=== PATIENT | female | born 2000 | race American Indian/Alaskan Native ===

== ENCOUNTER 2019-09-03 17:57 | Emergency (ER) | payer OTHER ==
[2019-09-03 18:38] VITALS: BP 98/64
[2019-09-03] MEDS ORDERED: IBUPROFEN 800 MG TAB PO ONE (21:55)
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
== END 2019-09-03 23:00 | disposition home or self-care (01) ==
LOC: ED 17:57
DX: S86.911A Strain of unspecified muscle(s) and tendon(s) at lower leg level, right leg, initial encounter (principal); X58.XXXA Exposure to other specified factors, initial encounter; Y93.89 Activity, other specified; Y92.89 Other specified places as the place of occurrence of the external cause; Y99.8 Other external cause status

== ENCOUNTER 2021-04-28 16:33 | Emergency (ER) | payer OTHER ==
[2021-04-28 18:45] VITALS: BP 141/93
--- NOTE | 2021-04-28 19:25 | Emergency Department Report ---
ED Palpitations HPI - General Chief Complaint: Arrhythmia/Palpitations Stated Complaint: HEART RACING,LOOSE BREATH DIZZINESS Time Seen by Provider: 04/28/21 19:18 Source: patient Mode of arrival: Ambulatory Limitations: No Limitations - History of Present Illness Initial Comments: Patient is a 20-year-old female presents emergency room complaints of episodes of palpitations for 1 month. She states that she has the episode potentially once a week. she states that she feels anxious and then will feel like she is breathing fast during the episode. She has no symptoms at all currently. She denies any chest pain, pleuritic pain, leg swelling, calf pain, fever, nausea, vomiting, diarrhea, hemoptysis, cough. She denies any recent travel, recent birch rgery, hormone use, recent immobilization. No past medical history. No allergies to medications. She states that she does drink a significant amount of caffeine daily and barely drinks any water. Denies any alcohol use, tobacco use, drug use. - Related Data Previous Rx's Medication Instructions Recorded Last Taken Type Ibuprofen [Motrin 400 MG tab] 400 mg PO Q8H PRN #30 tablet 09/03/19 Unknown Rx Allergies Allergy/AdvReac Type Severity Reaction Status Date / Time No Known Allergies Allergy Verified 09/03/19 18:00 ED Review of Systems ROS: Stated complaint: HEART RACING,LOOSE BREATH DIZZINESS Other details as noted in HPI Comment: All other systems reviewed and negative ED Past Medical Hx - Social History Smoking Status: Never Smoker Substance Use Type: None - Medications Home Medications: Home Medications Medication Instructions Recorded Confirmed Last Taken Type Ibuprofen [Motrin 400 MG tab] 400 mg PO Q8H PRN #30 tablet 09/03/19 Unknown Rx ED Physical Exam - General Limitations: No Limitations General appearance: alert, in no apparent distress - Head Head exam: Present: atraumatic, normocephalic - Eye Eye exam: Present: normal appearance - ENT ENT exam: Present: mucous membranes moist - Respiratory Respiratory exam: Present: normal lung sounds bilaterally. Absent: respiratory distress, wheezes, rales, rhonchi, stridor, chest wall tenderness, accessory muscle use, decreased breath sounds, prolonged expiratory - Cardiovascular Cardiovascular Exam: Present: regular rate, normal rhythm, normal heart sounds. Absent: systolic murmur, diastolic murmur, rubs, gallop - Neurological Exam Neurological exam: Present: alert, oriented X3 - Psychiatric Psychiatric exam: Present: normal affect, normal mood - Skin Skin exam: Present: warm, dry, intact ED Course Vital Signs 04/28/21 18:44 Temperature 97.9 F Pulse Rate 82 Respiratory 16 Rate Blood Pressure 141/93 O2 Sat by Pulse 100 Oximetry ED Medical Decision Making - Lab Data Result diagrams: 04/28/21 19:46 04/28/21 19:46 - EKG Data EKG shows normal: sinus rhythm, axis, intervals, ST-T waves Rate: normal - EKG Data 04/28/21 19:25 Sinus arrhythmia Low voltage no STEMI no old EKG for comparison - Medical Decision Making Patient is a 20-year-old female presents emergency room complaints of episodes of palpitations for 1 month. She states that she has the episode potentially once a week. she states that she feels anxious and then will feel like she is breathing fast during the episode. She has no symptoms at all currently. She denies any chest pain, pleuritic pain, leg swelling, calf pain, fever, nausea, vomiting, diarrhea, hemoptysis, cough. She denies any recent travel, recent surgery, hormone use, recent immobilization. No past medical history. No allergies to medications. She states that she does drink a significant amount of caffeine daily and barely drinks any water. Denies any alcohol use, tobacco use, drug use. Vitals are normal. No abnormality episode examination as documented in chart. EKG with sinus arrhythmia and low voltage, otherwise normal. Labs are normal. Discussed all results with patient and answered questions. Patient will be referred to outpatient cardiology and primary care doctor. She is asymptomatic at this time. Advised patient Please increase your water intake. Please avoid caffeine or stimulant use (coffee, tea, soda, energy drink, chocolate). Follow-up with a primary care doctor. Follow-up with a roller presser operator. Return to emergency room for new or worsening symptoms. Critical care attestation.: If time is entered above; I have spent that time in minutes in the direct care of this critically ill patient, excluding procedure time. ED Disposition Clinical Impression: Palpitations Disposition: HOME / SELF CARE / HOMELESS Is pt being admited?: No Does the pt Need Aspirin: No Condition: Stable Instructions: Palpitations, Fbyw-in-Oatn Additional Instructions: Please increase your water intake. Please avoid caffeine or stimulant use (coffee, tea, soda, energy drink, chocolate). Follow-up with a primary care doctor. Follow-up with a roller presser operator. Return to emergency room for new or worsening symptoms. Referrals: PRIMARY CARE,MD [Primary Care Provider] - 2-3 Days LEIDA CHILDERS MD [Staff Physician] - 2-3 Days Forms: Work/School Release Form(ED) Time of Disposition: 21:03 Print Language: PERSIAN
[2021-04-28 20:25] LABS: Basophils # (Auto) 0.1 K/mm3 (0.0-0.1); Eosinophils # (Auto) 0.2 K/mm3 (0.0-0.4); Eosinophils % (Auto) 2.8 % (0.0-4.3); Hematocrit 35.3 % (30.3-42.9); Hemoglobin 11.6 gm/dl (10.1-14.3); Lymphocytes # (Auto) 1.8 K/mm3 (1.2-5.4); Lymphocytes % (Auto) 29.8 % (13.4-35.0); Mean Corpuscular HGB Conc 33 % (30-34); Mean Corpuscular Volume 75 fl (79-97); Monocytes # (Auto) 0.3 K/mm3 (0.0-0.8); Monocytes % (Auto) 5.4 % (0.0-7.3); Platelet Count 317 K/mm3 (140-440); Red Cell Distribution Width 19.6 % (13.2-15.2)
[2021-04-28 20:45] LABS: Alanine Aminotransferase 7 units/L (7-56); Albumin 4.6 g/dL (3.9-5); Blood Urea Nitrogen 7 mg/dL (7-17); Calcium 9.8 mg/dL (8.4-10.2); Hemolysis Index 3
[2021-04-28 20:58] LABS: BUN/Creatinine Ratio 14
--- NOTE | 2021-04-30 09:44 | Electrocardiograph Report ---
[facility] Test Date: 2021-04-28 Test Time: 19:14:44 Pat Name: INESSA CHU Department: Room: Gender: F Suspension Cord Tier: LUCIA : 2000 Requested By: TREVON LAYTON Order Number: [id number] Reading MD: Ammon Fagan Measurements Intervals [place] Rate: 70 P: 52 NV: 156 QRS: -5 QRSD: 70 T: 12 QT: 382 QTc: 412 Interpretive Statements Sinus arrhythmia Low voltage, precordial leads NSTW'S No previous ECG available for comparison Electronically Signed On 04-30-2021 9:44:10 EDT by Ammon Fagan
== END 2021-04-28 20:25 | disposition home or self-care (01) ==
LOC: ED 16:33
DX: R00.2 Palpitations (principal)
CPT/HCPCS: 36415; 80053; 82550; 83735; 84443; 84484; 85025; 93005; 99283